=== PATIENT | female | born 1995 | race Two or more races ===

== ENCOUNTER 2024-02-13 20:45 | Observation (INO) | payer MEDICAID ==
[~2024-02-13] VITALS: Ht 167.6 cm; Wt 80.7 kg
[2024-02-13 21:49] LABS: Fern Testing Negative
== END 2024-02-13 23:58 | disposition home or self-care (01) ==
LOC: LDRP 20:45
PROVIDERS: ADMIT Obstetrics & Gynecology; ATTEND Obstetrics & Gynecology
DX: Z36.89 Encounter for other specified antenatal screening (principal); Z3A.32 32 weeks gestation of pregnancy
CPT/HCPCS: 59025; 76805; 76817; 84112; 94760; 96360; G0378; Q0114